=== PATIENT | male | born 1965 | race Caucasian/White ===

== ENCOUNTER 2019-05-11 17:38 | Emergency (ER) | payer OTHER ==
[2019-05-11 18:23] VITALS: TEMP 98
--- NOTE | 2019-05-11 18:45 | XR ---
EXAMINATION TYPE: XR shoulder complete LT DATE OF EXAM: 05/11/2019 COMPARISON: NONE HISTORY: Shoulder pain TECHNIQUE: 3 views FINDINGS: There is some spurring at the glenohumeral joint. I see no fracture nor dislocation. There is mild spurring at the AC joint. IMPRESSION: Mild osteoarthritis. No fracture seen.
--- NOTE | 2019-05-11 19:12 | XR ---
EXAMINATION TYPE: XR wrist complete LT DATE OF EXAM: 05/11/2019 COMPARISON: NONE HISTORY: Wrist pain TECHNIQUE: 3 views FINDINGS: There is some narrowing and spurring at the radiocarpal joint. There is spurring and calcif ication at the ulnar styloid process. This is probably due to old trauma. I see no acute fracture nor dislocation. There is narrowing and spurring at the first carpometacarpal joint. 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 No acute fractu re seen.
--- NOTE | 2019-05-11 19:13 | XR ---
EXAMINATION TYPE: XR elbow complete LT DATE OF EXAM: 05/11/2019 COMPARISON: NONE HISTORY: Pain TECHNIQUE: 4 views FINDINGS: There is moderate spurring at the coronoid process. There is spurring on the olecranon proc ess. There is no definite joint effusion. I see no acute fracture nor dislocation. There is some spur ring at the medial humeral condyle. IMPRESSION: Osteoarthritic hypertrophic changes. No fracture.
[2019-05-11] MEDS ORDERED: KETOROLAC 60 MG/2 ML VIAL IM STA (20:54)
[2019-05-11] MEDS ORDERED: ACET/COD 300 MG/30 MG STARTER PACK 6 TAB BTL PO STA (21:07)
--- NOTE | 2019-05-11 21:08 | ED ---
General Adult HPI - General Chief complaint: Extremity Injury, Upper Stated complaint: left shoulder and arm injury Time Seen by Provider: 05/11/19 20:48 Source: patient, RN notes reviewed, old records reviewed Mode of arrival: ambulatory Limitations: no limitations - History of Present Illness Initial comments: 53-year-old male patient presents ED chief complaint of fall left shoulder injury. Patient reports that he was jumping off of the bed of his truck when his foot caught on something and he fell directly onto his left shoulder. Denies any trauma to head or neck. Denies any loss of consciousness. Patient's chief complaint is left shoulder pain does state that is sore in his wrist and his elbow. Denies any other complaints. Systemic: Pt denies fatigue, fever/chills, rash. Pt denies weakness, night sweats, weight loss. Neuro: Pt denies headache, visual disturbances, syncope or pre-syncope. HEENT: Pt denies ocular discharge or irritation, otalgia, rhinorrhea, pharyngitis or notable lymphadenopathy. Cardiopulmonary: Pt denies chest pain, SOB, heart palpitations, dyspnea on exertion. Abdominal/GI: Pt denies abdominal pain, n/v/d. : Pt denies dysuria, burning w/ urination, frequency/urgency. Denies new onset urinary or bowel incontinence. MSK: Pt denies myalgia, loss of strength or function in extremities. Neuro: Pt denies new onset weakness, paresthesias. - Related Data Home Medications Medication Instructions Recorded Confirmed No Known Home Medications 05/11/19 05/11/19 Allergies Allergy/AdvReac Type Severity Reaction Status Date / Time No Known Allergies Allergy Verified 05/11/19 20:50 Review of Systems ROS Statement: Those systems with pertinent positive or pertinent negative responses have been documented in the HPI. ROS Other: All systems not noted in ROS Statement are negative. Past Medical History Past Medical History: No Reported History History of Any Multi-Drug Resistant Organisms: None Reported Past Surgical History: Orthopedic Surgery Additional Past Surgical History / Comment(s): finger Past Psychological History: No Psychological Hx Reported Smoking Status: Never smoker Past Alcohol Use History: Rare Past Drug Use History: None Reported General Exam - General Exam Comments Initial Comments: Constitutional: NAD, AOX3, Pt has pleasant affect. HEENT: NC/AT, trachea midline, neck supple, no lymphadenopathy. Posterior pharynx non erythematous, without exudates. External ears appear normal, without discharge. Mucous membranes moist. Eyes PERRLA, EOM intact. There is no scleral icterus. No pallor noted. Cardiopulmonary: RRR, no murmurs, rubs or gallops, no JVD noted. Lungs CTAB in anterior and posterior lara. No peripheral edema. Abdominal exam: Abdomen soft and non-distended. Abdomen non-tender to palpation in all 4 quadrants. Bowel sounds active in LLQ. No hepatosplenomegaly. No ecchymosis Neuro: CN II-XII grossly intact. No nuchal rigidity. No raccon eyes, no garcia sign, no hemotympanum. No cervical spinal tenderness. MSK: Left AC joint tender to palpation. Left anterior shoulder mild tenderness to palpation. No significant distal tenderness to palpation. Neurovascularly intact. Active range of motion limited secondary to pain in left acromioclavicular joint. Passive range of motion intact. No posterior calf tenderness bilaterally, homans sign negative bilaterally. Posterior tibialis and radial pulse +2 bilaterally. Sensation intact in upper and lower extremities. Full active ROM in lower extremities, 5/5 stregnth. No snuffbox tenderness. Limitations: no limitations Course Vital Signs 05/11/19 18:20 Temperature 98 F Pulse Rate 64 Respiratory 18 Rate Blood Pressure 131/72 Medical Decision Making - Medical Decision Making 53-year-old male patient presents ED chief complaint of fall left shoulder injury. Patient reports that he was jumping off of the bed of his truck when his foot caught on something and he fell directly onto his left shoulder. Denies any trauma to head or neck. Denies any loss of consciousness. Patient's chief complaint is left shoulder pain does state that is sore in his wrist and his elbow. Denies any other complaints. Pt VSS, afebrile. Physical exam displayed: Left AC joint tender to palpation. Left anterior shoulder mild tenderness to palpation. No significant distal tenderness to palpation. Neurovascularly intact. Active range of motion limited secondary to pain in left acromioclavicular joint. Passive range of motion intact. Plain film of elbow displayed osteoarthritic hypertrophic changes no fracture. Plain film and wrist displayed no somatic outstretched arthritis at the radiocarpal joint no acute fracture. Plain film of shoulder displayed mild ulcer there is no frac ture seen. Due to patient's localized tenderness that her acromioclavicular joint patient be placed in sling for acromioclavicular joint separation. Explained patient risks including adhesive capsulitis and explained the importance of range of motion exercises. Patient will discharge, states that he follows up with a orthopedic surgeon in [place]. Patient be provided local orthopedic as well. Return precautions discussed, case discussed with Dr. Morrison. Disposition Clinical Impression: Acromioclavicular (AC) joint injury Disposition: HOME SELF-CARE Condition: Stable Instructions (If sedation given, give patient instructions): Acromioclavicular Separation (ED), How to Use a Sling (ED) Additional Instructions: Patient to adhere to previously discussed treatment plan and will take medication(s) as directed. Patient to follow up with PCP in 1-2 days. Patient to return to ED if symptoms do not improve. Follow-up with previously established orthopedic surgeon tomorrow. Follow-up with local orthopedic surgeon if unable to follow up with previously established orthopedic surgeon. Return to ER if condition worsens in any way. Is patient prescribed a controlled substance at d/c from ED?: No Referrals: None,Stated [Primary Care Provider] - 1-2 days Lakisha Tineo, PAC [PHYSICIAN HEALTH SAFETY AND ENVIRONMENT MANAGER] - 1-2 days
[2019-05-11 21:10] VITALS: BP 134/97; PULSE 60; RESP 17
== END 2019-05-11 21:07 | disposition home or self-care (01) ==
LOC: EC 17:38
DX: S49.92XA Unspecified injury of left shoulder and upper arm, initial encounter (principal); M19.022 Primary osteoarthritis, left elbow; S43.102A Unspecified dislocation of left acromioclavicular joint, initial encounter; L98.499 Non-pressure chronic ulcer of skin of other sites with unspecified severity; W17.89XA Other fall from one level to another, initial encounter; Y93.39 Activity, other involving climbing, rappelling and jumping off; Y92.009 Unspecified place in unspecified non-institutional (private) residence as the place of occurrence of the external cause
CPT/HCPCS: 73030; 73080; 73110; 96372; 99284; J1885